=== PATIENT | male | born 1950 | race Caucasian/White ===

== ENCOUNTER 2022-10-23 19:41 | Emergency (ER) | payer MEDICARE ==
[2022-10-23] MEDS ORDERED: Mupirocin Oint 22 GM Tube TOP ONE (20:08)
[2022-10-23] MEDS ORDERED: Lidocaine 1% with EPINEPHrine 1:100,000 50 ML MDV INFILT ONE (20:08)
[2022-10-23] MEDS ORDERED: Diphtheria,Pertussis(Acell),Tetanus Vaccine 0.5 ML Syringe IM ONE (20:10)
[2022-10-23] MEDS ORDERED: Lidocaine 1% PF 2 ML SDV IV ONE (20:22)
[2022-10-23] MEDS ORDERED: Bacitracin Oint 1 GM U/D Packet TOP ONE (20:27)
== END 2022-10-23 20:17 | disposition home or self-care (01) ==
LOC: LB.ED 19:41
DX: S60.452A Superficial foreign body of right middle finger, initial encounter (principal); Z72.0 Tobacco use; Z23 Encounter for immunization; W45.8XXA Other foreign body or object entering through skin, initial encounter
CPT/HCPCS: 20520; 90471; 90715; 99283